=== PATIENT | male | born 1975 | race African-American/Black ===

== ENCOUNTER 2017-09-17 10:26 | Emergency (ER) | payer SELFPAY ==
[2017-09-17 10:33] VITALS: RESP 16
[2017-09-17 11:25] LABS: PLATELET COUNT 324 10^3/uL (150-400)
[2017-09-17] MEDS ORDERED: ONDANSETRON 4 MG/2 ML VIAL IVP ONE (11:45)
[2017-09-17] MEDS ORDERED: NS 1,000 ML IV ONE (11:45)
[2017-09-17] MEDS ORDERED: KETOROLAC 15 MG/1 ML SDV IVP ONE (11:49)
--- NOTE | 2017-09-17 11:49 | EDPHY ---
H & P Time Seen by Provider: 09/17/17 11:35 HPI/ROS: CHIEF COMPLAINT: Back pain HISTORY OF PRESENT ILLNESS: 41-year-old male presents with low back pain. Onset of nausea and 1 episode of vomiting last evening, followed by diffuse back pain. The back pain increases with movement and is better with rest. Also associated with abdominal cramping, no diarrhea and no fever. He has a history of rhabdomyolysis and acute renal failure related to rhabdomyolysis and is especially concerned about recurrent renal failure. He recently was diagnosed with pneumonia and has an ongoing cough since diagnosis. REVIEW OF SYSTEMS: Constitutional: No fever, no chills Eyes: No visual changes ENT: No sore throat Respiratory: cough, no shortness of breath Cardiac: No chest pain Genitourinary: No hematuria, no dysuria Musculoskeletal: No myalgias Skin: No rash Neurological: No headache, no numbness, no weakness Psychiatric: No depression Past Medical/Surgical History: Renal failure Rhabdomyolysis Social History: Homeless No IV drug abuse Smoking Status: Current every day smoker Physical Exam: General Appearance: Alert, pleasant Eyes: Pupils equal and round, no conjunctival pallor or injection ENT, Mouth: Mucous membranes moist Neck: Normal inspection Respiratory: Lungs are clear to auscultation Cardiovascular: Regular rate and rhythm Gastrointestinal: Abdomen is soft and nontender Back: Diffuse tenderness of the paraspinous musculature and midline areas, without localizing features Neurological: A&O, motor 5/5, sensory grossly intact Skin: Warm and dry, no rash Extremities: Nontender, no pedal edema Psychiatric: Mood and affect normal Constitutional: Initial Vital Signs Temperature (C) 36.9 C 09/17/17 10:30 Heart Rate 88 09/17/17 10:30 Respiratory Rate 16 09/17/17 10:30 Blood Pressure 161/82 H 09/17/17 10:30 O2 Sat (%) 96 09/17/17 10:30 O2 Delivery Mode Room Air Allergies/Adverse Reactions: No Known Allergies Allergy (Unverified 09/17/17 10:29) Home Medications: Medication Instructions Recorded Ondansetron Odt [Zofran Odt 4 mg 4 mg PO Q4 PRN #6 tab 09/17/17 (*)] Medical Decision Making - Diagnostics Imaging Results: Chest X-Ray 09/17/17 11:45 Impression: Mild bronchitis. No pneumonia or effusion. ED Course/Re-evaluation: This patient presents with a chief complaint of back pain. PE c/w musculoskeletal etiology. I considered the diagnosis of epidural abscess; he has no risk factors for epidural abscess and he has never used IV drugs. In addition, he has no localizing pain, so I doubt this diagnosis. The leukocytosis is most likely related to vomiting. IV normal saline 1 L and Zofran 4 mg IV given. Chest x-ray ordered to rule out recurrent/persistent pneumonia and is unremarkable. Feels better after IVF/Zofran, nausea resolved. Abd remains benign. CK slightly elevated, c/w mild rhabdo, IVF given, encouraged oral fluids, no need for admission. Strongly encouraged pt to f/u PC. Return to ED for worsening sx. Differential Diagnosis: Differential diagnosis for back pain includes muscular pain, herniated disc, epidural abscess, discitis, spine fracture, intra-abdominal causes and urinary tract infection. - Data Points Laboratory Results: Laboratory Results 09/17/17 11:02 09/17/17 11:02 Medications Given: Discontinued Medications Sodium Chloride (Ns) 1,000 mls @ 0 mls/hr IV EDNOW ONE; Wide Open PRN Reason: Protocol Stop: 09/17/17 11:46 Last Admin: 09/17/17 11:50 Dose: 1,000 mls Ketorolac Tromethamine (Toradol) 30 mg IVP EDNOW ONE Stop: 09/17/17 11:50 Last Admin: 09/17/17 11:55 Dose: 30 mg Ondansetron HCl (Zofran) 4 mg IVP EDNOW ONE Stop: 09/17/17 11:46 Last Admin: 09/17/17 11:55 Dose: 4 mg Departure - Departure Disposition: Home, Routine, Self-Care Clinical Impression: Back strain Qualifiers: Encounter type: initial encounter Qualified Code(s): S39.012A - Strain of muscle, fascia and tendon of lower back, initial encounter Vomiting Qualifiers: Vomiting type: unspecified Vomiting Intractability: non-intractable Nausea presence: with nausea Qualified Code(s): R11.2 - Nausea with vomiting, unspecified Condition: Good Instructions: Acute Nausea and Vomiting (ED), Back Pain (ED) Additional Instructions: [facility] has walk-in appointments for the homeless at the following days/locations. No appointment is needed. Thursday 8-10 am @ [facility] 11 AM-1 PM @ [facility] Thursday 8-10:30 AM @ [facility] Thursday 8-10 AM @ [facility] 2-4 PM @ [facility] Thursday 8-10 AM @ [facility] Referrals: [facility],. [Clinic] - As per Instructions Prescriptions: Ondansetron Odt [Zofran Odt 4 mg (*)] 4 mg PO Q4 PRN #6 tab PRN Reason: Nausea
[2017-09-17 12:10] LABS: CREATINE KINASE 356 IU/L (0-224)
[2017-09-17 14:23] VITALS: PULSE 82
[2017-09-17 14:24] VITALS: BP 165/80; TEMP 97.9; O2SAT 96
--- NOTE | 2017-09-17 14:32 | ASMTCMCOM ---
CM Note CM Note Notes: Patient reported that he was sent here from a facility in [place] - "they gave me a bus pass and sent me to the place in [place] that can help with bipolar and suicide." Patient said that he lost all discharge paperwork and doesn't know where he was supposed to go. I called [facility] and spoke with someone in their inpatient psych unit - they confirmed that patient was discharged and supposed to follow up with the [facility]. They also cautioned me that he had been displaying malingering behavior. I spoke with patient about this and advised him to go through [place]. I gave him an informational pamphlet on this which includes the address and how to get there. I gave him two local bus passes. I also encouraged him to tell the staff at that he was advised by the [facility] to go to the [facility]. Date Signed: 09/17/2017 02:31 PM Electronically Signed By:Mary Jane Angel RN
== END 2017-09-17 14:27 | disposition home or self-care (01) ==
DX: S39.012A Strain of muscle, fascia and tendon of lower back, initial encounter (principal); R11.2 Nausea with vomiting, unspecified; F17.200 Nicotine dependence, unspecified, uncomplicated; E86.9 Volume depletion, unspecified; X58.XXXA Exposure to other specified factors, initial encounter
CPT/HCPCS: 96374; J1885; J2405